=== PATIENT | male | born 1925 | race Caucasian/White ===

== ENCOUNTER 2017-07-03 10:53 | Observation (INO) ==
[2017-07-03] MEDS ORDERED: 0.9 % Sodium Chloride 500 ML IVC ONE ×2 (11:32→13:27)
--- NOTE | 2017-07-03 11:35 | Emergency Department Note ---
Disposition Clinical Impression: Urinary tract infection Qualifiers: Urinary tract infection type: site unspecified Hematuria presence: without hematuria Qualified Code(s): N39.0 - Urinary tract infection, site not specified Altered mental state Qualifiers: Altered mental status type: unspecified Qualified Code(s): R41.82 - Altered mental status, unspecified Disposition: Admitted As Inpatient Condition: Fair Time of Disposition: 13:21 General Adult HPI - General Chief complaint: ED Urogenital-Male Stated complaint: uti symptoms Time Seen by Provider: 07/03/17 11:08 Source: patient, family Mode of arrival: ambulatory Limitations: no limitations Nursing Notes Reviewed: Yes Vital Signs Reviewed: Yes - History of Present Illness HPI Narrative: 89-year-old male with a history of hypertension, diabetes, recent head injury status post evacuation of bleed from [place] in May presents for evaluation of UTI symptoms and altered mental status. Patient did have a Berg catheter which was recently removed. Patient's family reports he has been increasingly altered over the past couple days. The patient also been combative reported by home nursing staff. Nursing staff also reports the patient has had difficulty with ambulation. Patient also had some discomfort in that lower abdomen. Patient had a outpatient urinary specimen obtained yesterday which was consistent with infection. Patient denies any fevers. No chest pain or difficulty breathing. Abdominal pain as discussed in the lower abdomen. No recent antibiotic use. No notable traumas or falls. Pain Scale: 8 - Related Data Home Medications Medication Instructions Recorded Confirmed Digoxin [Lanoxin] 0.25 mg PO DAILY 12/12/15 07/03/17 Magnesium Oxide [Mgo] 400 mg PO DAILY 12/12/15 07/03/17 Metoprolol [Lopressor] 12.5 mg PO BID 12/12/15 07/03/17 Nitroglycerin [Nitrostat] 0.4 mg SL Q5M PRN 12/12/15 07/03/17 [place]-3 Fatty Acids/Fish Oil 2 each PO BID 12/12/15 07/03/17 [[place]-3 Fish Oil 1,000 mg Sfgl] Fluticasone Propionate [Flovent 2 puff IH BID 05/09/17 07/03/17 Hfa] Acetaminophen [Non-Aspirin] 650 mg PO DAILY PRN 07/03/17 07/03/17 Albuterol Sulfate [Proair Hfa] 2 puff IH Q4-6H PRN 07/03/17 07/03/17 Insulin ASPART [NovoLOG] 0 unit SQ AD 07/03/17 07/03/17 Insulin NPH [HumuLIN NPH] 4 unit SQ Q12H 07/03/17 07/03/17 Ipratropium/Albuterol Neb [Duoneb] 3 ml IH Q6HR 07/03/17 07/03/17 Oxygen 2 - 4 l .ROUTE AD 07/03/17 07/03/17 Allergies Allergy/AdvReac Type Severity Reaction Status Date / Time aspirin [ASA] AdvReac Itching Verified 07/03/17 10:59 Penicillins [PCN] AdvReac Itching Verified 07/03/17 10:59 All systems ED: reviewed and negative except as stated. Constitutional: Reports: as per HPI. Denies: fever Eyes: Reports: as per HPI ENT ED: Reports: as per HPI Cardiovascular: Reports: as per HPI. Denies: chest pain Respiratory: Reports: as per HPI. Denies: cough, dyspnea Gastrointestinal: Reports: as per HPI, abdominal pain. Denies: nausea, vomiting Genitourinary: Reports: as per HPI Musculoskeletal: Reports: as per HPI Integumentary: Reports: as per HPI Neurological: Reports: as per HPI. Denies: weakness Psychiatric: Reports: as per HPI Endocrine: Reports: as per HPI Hematological/Lymphatic: Reports: as per HPI Past Medical History - Past Medical History Source: patient, obtained from family Medical history: Reports: diabetes Psychiatric history: Reports: anxiety, depression - Social History Smoking Status: Never smoker Smokeless Tobacco Status: No Alcohol use: Reports: none Drug use: Reports: none Physical Exam - General Limitations: no limitations, altered mental status General appearance: alert, in no apparent distress - Head Head exam: normocephalic, normal inspection, other (Healed right craniotomy scar ) - Eye Eye exam: Present: normal appearance, PERRL, EOMI. Absent: nystagmus - ENT ENT exam: normal exam, normal oropharynx, mucous membranes dry - Neck Neck exam: Present: normal inspection - Chest Chest inspection: Present: normal inspection, symmetric chest wall rise - Respiratory Respiratory exam: Present: normal lung sounds bilaterally. Absent: respiratory distress - Cardiovascular Cardiovascular exam: Present: regular rate, normal rhythm. Absent: systolic murmur - Abdominal Exam Abdominal exam: Present: soft, tenderness (Mild lower abdominal), distention ( Lower abdominal fullness), hyperactive bowel sounds. Absent: guarding, rebound - Extremities Exam Extremities exam: Present: normal inspection - Back Exam Back exam: Present: normal inspection - Neurological Exam Neurological exam: Present: alert, CN II-XII intact - Expanded Neurological Exam Patient oriented to: Present: person, place Cranial nerves: EOM function (II, III, IV, ): Normal, facial sensation (V): Normal, facial palsy (VII): Normal, spinal accessory function (XI): Normal, tongue deviation (XII): Normal Motor strength - LUE: 5/5 Motor strength - RUE: 5/5 Motor strength - LLE: 5/5 Motor strength - RLE: 5/5 Coma Scale Eye Opening: Spontaneous Coma Scale Motor Response: Obeys Commands Coma Scale Verbal Response: Confused Coma Scale Total: 14 - Skin Skin exam: Present: warm, dry, intact Course Course Narrative: Patient seen and examined. Patient does appear altered with situation. Patient is appropriate to self as well as place. History provided by the family at and nursing staff at bedside. Denies any notable trauma. Patient's urinalysis yesterday does show signs of infection. Concerns for UTI and altered mental status. Patient will get basic lab work including IV fluids and antibiotics. Patient will also get a head CT given recent trauma concerns for rebleeding. Disposition admission - Reevaluation(s) Reevaluation #1: Patient seen and examined. Patient in no acute distress. Patient did have a bladder ultrasound showed approximately 100 mL of urine. Patient's abdominal plan of care. Time: 13:36 Vital Signs Temperature 97.9 F 07/03/17 10:56 Pulse Rate 60 07/03/17 10:56 Respiratory Rate 18 07/03/17 10:56 Blood Pressure 99/61 07/03/17 10:56 O2 Sat by Pulse Oximetry 99 07/03/17 10:56 Temperature 97.7 F 07/03/17 15:49 Pulse Rate 62 07/03/17 15:49 Respiratory Rate 13 07/03/17 15:49 Blood Pressure 148/75 07/03/17 15:49 O2 Sat by Pulse Oximetry 99 07/03/17 15:49 Oxygen Delivery Oxygen Delivery Room Air Medical Decision Making - [facility] Narrative Medical decision making narrative: 89-year-old male presents for evaluation of UTI as well as altered mental status. Patient's symptoms in the past couple days. Patient was recently hospitalized with Berg catheter placement. Patient did have urinalysis obtained yesterday which showed evidence of infection. Given the patient's altered mental status as well as UTI with most recent catheter insertion the patient was given IV antibiotics. Patient will also be admitted to the hospital service to help ensure resolution of symptoms. Given the patient's recent history of head injury status post bleed the patient did get a head CT which showed no acute intracranial abnormality. - Lab Data Lab results reviewed: Yes I reviewed the patient's lab results. Result diagrams: 07/03/17 12:21 07/03/17 12:21 Lab Results 07/03/17 07/03/17 07/03/17 Range/Units 12:21 12:21 12:21 WBC 8.0 (4.3-11.1) K/mcL RBC 4.82 (4.19-5.50) M/mcL Hgb 14.3 (12.9-16.9) g/dL Hct 46.8 (37.5-50.1) % MCV 97.1 (83.0-100.0) fL MCH 29.7 (28.0-33.3) pg MCHC 30.6 L (31.6-35.5) g/dL RDW 16.1 H (11.5-14.5) % Plt Count 148 (140-400) K/mcL MPV 12.3 (9.4-12.4) fL Immature Gran % 0.2 (0-4) % Seg Neutrophils % 72.1 % Lymphocytes % 16.8 % Monocytes % 7.8 % Eosinophils % 2.5 % Basophils % 0.6 % Neutrophils # 5.8 (1.6-8.9) K/mcL Lymphocytes # 1.4 (0.6-4.6) K/mcL Monocytes # 0.6 (0.0-1.3) K/mcL Eosinophils # 0.2 (0.0-0.6) K/mcL Basophils # 0.1 (0.0-0.2) K/mcL Sodium 138 (136-145) mEq/L Potassium 4.2 (3.5-5.1) mEq/L Chloride 101 (98-107) mEq/L Carbon Dioxide 34 H (23-29) mEq/L BUN 36 H (8-23) mg/dL Creatinine 0.91 (0.70-1.30) mg/dL Est GFR ( Amer) > 60 (> 60) Est GFR (Non-Af Amer) > 60 (> 60) BUN/Creatinine Ratio 40 H (6-26) Glucose 305 H (70-105) mg/dL Calculated Osmolality 306 H (280-300) Lactic Acid 1.7 (0.5-2.2) mmol/L Calcium 9.5 (8.6-10.3) mg/dL Total Bilirubin 0.5 (0.3-1.0) mg/dL AST 14 (13-39) Units/L ALT 15 (7-52) Units/L Alkaline Phosphatase 166 H (34-104) Units/L Serum Total Protein 6.1 L (6.4-8.9) g/dL Albumin 2.9 L (3.5-5.7) g/dL Globulin 3.2 (2.4-3.5) g/dL Albumin/Globulin Ratio 0.9 L (1.1-2.2) - Radiology Data Radiology results reviewed: Yes I reviewed the patient's radiology results. Head CT 07/03/17 11:31 IMPRESSION: No acute intracranial abnormality. The high attenuation in the right subdural space has resolved and low attenuation is seen in the right subdural space consistent with fluid. Diffuse atrophic changes with findings suggesting chronic microvascular ischemia D/ / Vijay Antonio MD / Vijay Antonio MD Interpreting Provider: Vijay Antonio MD - EKG Data EKG #1 EKG attestation: Yes I reviewed and interpreted this EKG. EKG results narrative: Electronic ventricular pacemaker at rate of 60. No signs of [place]. QTC of 403. Similar to prior EKG in May 2017 S.B.A.R. - S.B.A.R. Situation: Demographics Background: Presenting Complaint Assessment: Vital Signs, Course and respsone to treatment, Patient/Family Expectation Recommendation: Barrier(s) to disposition, Recommendation based on pending studies, treatments, or consults S.B.A.R. Report Given to: Dr. Nehemiah Reyes Repor Time: 13:28 Attestation Statement - Attestation Attestation: I examined this patient and my medical decision-making was reviewed with the Resident Physician. I agree with the documented findings, disposition and treatment plan as described except to the extent set forth below. Family relates change from baseline mental status, although this is currently subtle - converses normally and answers questions appropriately on my eval. Hemodynamically normal, source of infection identified, urine cultured.
[2017-07-03] MEDS ORDERED: cefTRIAXone 1,000 MG in Water for inj. (sterile) 20 ML 10 ML IVP ONE (11:45)
[2017-07-03 12:32] LABS: Basophils # 0.1 K/mcL (0.0-0.2); Basophils % 0.6 %; Eosinophils # 0.2 K/mcL (0.0-0.6); Eosinophils % 2.5 %; Hematocrit 46.8 % (37.5-50.1); Hemoglobin 14.3 g/dL (12.9-16.9); Immature Granulocytes % 0.2 % (0-4); Lymphocytes # 1.4 K/mcL (0.6-4.6); Lymphocytes % 16.8 %; Mean Corpuscular HGB Conc 30.6 g/dL (31.6-35.5); Mean Corpuscular Hemoglobin 29.7 pg (28.0-33.3); Mean Corpuscular Volume 97.1 fL (83.0-100.0); Mean Platelet Volume 12.3 fL (9.4-12.4); Monocytes # 0.6 K/mcL (0.0-1.3); Monocytes % 7.8 %; Neutrophils # 5.8 K/mcL (1.6-8.9); Platelet Count 148 K/mcL (140-400); Red Blood Count 4.82 M/mcL (4.19-5.50); Red Cell Distribution Width 16.1 % (11.5-14.5); Segmented Neutrophils % 72.1 %
[2017-07-03 13:01] LABS: Alanine Aminotransferase 15 Units/L (7-52); Albumin 2.9 g/dL (3.5-5.7); Albumin/Globulin Ratio 0.9 (1.1-2.2); Alkaline Phosphatase 166 Units/L (34-104); Aspartate Amino Transferase 14 Units/L (13-39); BUN/Creatinine Ratio 40 (6-26); Bilirubin,Total 0.5 mg/dL (0.3-1.0); Blood Urea Nitrogen 36 mg/dL (8-23); Calcium 9.5 mg/dL (8.6-10.3); Carbon Dioxide 34 mEq/L (23-29); Chloride 101 mEq/L (98-107); Globulin 3.2 g/dL (2.4-3.5); Glucose 305 mg/dL (70-105); Osmolality,Calculated 306 (280-300); Potassium 4.2 mEq/L (3.5-5.1); Sodium 138 mEq/L (136-145); Total Protein 6.1 g/dL (6.4-8.9); eGFR For African Americans > 60 (> 60); eGFR For Non-African Americans > 60 (> 60)
--- NOTE | 2017-07-03 14:42 | Electrocardiograph Report ---
[place] [id number] Test Date: 2017-07-03 Pat Name: Leland Shepard Department: 104 Room: 2A11 Gender: M [employer]: : 1925 Requested By: Fernando Talley Order Number: [id number] Reading MD: Ty Cortez DO Measurements Intervals [place] Rate: 60 P: NV: 0 QRS: -52 QRSD: 151 T: 33 QT: 403 QTc: 403 Interpretive Statements ELECTRONIC VEN[employer]ICULAR PACEMAKER Electronically Signed On 07-03-2017 14:41:10 EST by Ty Cortez DO
--- NOTE | 2017-07-03 15:45 | Internal Med History&Physical ---
Date of Encounter: 07/03/17 Time of Encounter: 14:00 Assessment and Plan (1) Urinary tract infection Current visit: Yes Status: Acute -Patient will pyuria on urinalysis; cultures pending -Will continue ceftriaxone started in the ER Qualifiers: Urinary tract infection type: site unspecified Hematuria presence: without hematuria Qualified Code(s): N39.0 - Urinary tract infection, site not specified (2) Altered mental state Current visit: Yes Status: Acute -Suspect secondary to the above. -Patient does have underlying dementia per family. -Will continue to monitor -Physical therapy consulted for home safety Qualifiers: Altered mental status type: unspecified Qualified Code(s): R41.82 - Altered mental status, unspecified (3) HTN (hypertension) Current visit: Yes Status: Acute -Continue home medications Qualifiers: Hypertension type: essential hypertension Qualified Code(s): I10 - Essential (primary) hypertension (4) Diabetes Current visit: Yes Status: Acute -Continue home medications Qualifiers: Diabetes mellitus type: type 2 Qualified Code(s): E11.9 - Type 2 diabetes mellitus without complications (5) DVT prophylaxis Current visit: Yes Status: Acute -SCDs Internal Medicine - H&P: HPI Chief complaint: Altered mental status Admitted From: Home Plans for Post Hospital Care: Home History of present illness: Patient is an 89-year-old male with past medical history significant for recent subdural hematoma with evacuation on 05/2017 in addition to dementia, hypertension and diabetes who presents to the ER on 07/03/17 due to altered mental status. Per home health nurse and family who are at bedside, patient has been more confused over the last 24 hours than usual and also combative. Home health nurse noticed that urine had a strong odor and decided to do a UA. Patient was brought to the ER for further evaluation. In the ER, patient was found to have pyuria and also dehydrated on labs. CT of the head showed no acute findings. Patient will be admitted to the medical surgical floor for management acute cystitis. Past Med Surg Social Fam HX - Past Medical History Medical history: diabetes Psychiatric history: anxiety, depression - Social History Smoking Status: Never smoker Smokeless Tobacco Status: No Alcohol use: none Drug use: none Internal Medicine - H&P: Meds Digoxin [Lanoxin] 0.25 mg PO DAILY 12/12/15 [History] Magnesium Oxide [Mgo] 400 mg PO DAILY 12/12/15 [History] Metoprolol [Lopressor] 12.5 mg PO BID 12/12/15 [History] Nitroglycerin [Nitrostat] 0.4 mg SL Q5M PRN 12/12/15 [History] [place]-3 Fatty Acids/Fish Oil [[place]-3 Fish Oil 1,000 mg Sfgl] 2 each PO BID 04/18 [History] Fluticasone Propionate [Flovent Hfa] 2 puff IH BID 05/09/17 [History] Acetaminophen [Non-Aspirin] 650 mg PO DAILY PRN 07/03/17 [History] Albuterol Sulfate [Proair Hfa] 2 puff IH Q4-6H PRN 07/03/17 [History] Insulin ASPART [NovoLOG] 0 unit SQ AD 07/03/17 [History] Insulin NPH [HumuLIN NPH] 4 unit SQ Q12H 07/03/17 [History] Ipratropium/Albuterol Neb [Duoneb] 3 ml IH Q6HR 07/03/17 [History] Oxygen 2 - 4 l .ROUTE AD 07/03/17 [History] 3 Allergy/AdvReac Type Severity Reaction Status Date / Time aspirin [ASA] AdvReac Itching Verified 07/03/17 10:59 Penicillins [PCN] AdvReac Itching Verified 07/03/17 10:59 All Systems PM: A 10-system review of systems was performed and is negative for pertinent findings except as documented above in the HPI. - Constitutional Vitals: Temp Pulse Resp BP Pulse Ox 97.9 F 62 18 119/65 99 07/03/17 10:56 07/03/17 13:49 07/03/17 13:49 07/03/17 13:49 07/03/17 13:49 General appearance: Present: A&O X 1 - Respiratory Respiratory exam: Present: CTAB. Absent: accessory muscle use, rales, rhonchi, wheezes - Cardiovascular Cardiovascular exam: Present: RRR, +S1, +S2. Absent: diastolic murmur, gallop, rubs, systolic murmur - GI/Abdominal GI/Abdominal exam: Present: normal bowel sounds, soft, no peritoneal signs. Absent: distended, tenderness - Extremities Exam Extremities exam: Absent: pedal edema - Neurological Exam Neurological exam: Present: altered - Psychiatric Psychiatric exam: Present: normal mood Internal Med - H&P Results - Labs CBC & Chem 7: 07/03/17 12:21 07/03/17 12:21
[2017-07-03] MEDS ORDERED: Naloxone 0.4 MG/ML INJ IVP PRN (15:55)
[2017-07-03] MEDS ORDERED: Nitroglycerin 0.4 MG TAB.SUBL SL PRN (15:58)
[2017-07-03] MEDS ORDERED: Acetaminophen 325 MG TABLET PO PRN (15:58)
[2017-07-03] MEDS ORDERED: NON-FORMULARY MEDICATION 1 EACH EACH (Oxygen [Oxygen] 0 L) SCH (16:00)
[2017-07-03] MEDS ORDERED: INSULIN ISOPHANE SQ SCH (16:00)
[2017-07-03] MEDS ORDERED: Dextrose Gel 15 GM/37.5 ML TUBE PO PRN ×2 (17:00)
[2017-07-03] MEDS ORDERED: D5% in Water 1,000 ML IVC PRN ×2 (17:00→20:48)
[2017-07-03] MEDS ORDERED: *HR* Dextrose 50 % in Water (Syg) 50 ML SYRINGE IVP PRN (17:00)
[2017-07-03 17:41] LABS: Bilirubin,Urine Negative (Negative); Blood,Urine Large (Negative); Clarity,Urine Turbid (Clear); Color,Urine Yellow (Yellow); Glucose,Urine (UA) Normal (Normal); Ketones,Urine Negative (Negative); Leukocyte Esterase,Urine Large (Negative); Nitrite,Urine Positive (Negative); PH,Urine 7.5 pH Units (5.0-8.0); Protein,Urine 100 mg/dL (Neg-Trace); Specific Gravity,Urine 1.023 (1.010-1.025); Urobilinogen,Urine Normal (Normal)
[2017-07-03 17:43] LABS: RBC,Urine TNTC per hpf (0-3); Squamous Epithelial Cell,Urine Many per lpf (None-Few); WBC,Urine TNTC per hpf (0-3)
[2017-07-03 17:59] LABS: Bacteria,Urine Moderate per hpf (None-Few); Mucus,Urine Few (Few)
[2017-07-03 18:00] LABS: Hyaline Casts,Urine None Seen per lpf (None-Few)
[2017-07-03] MEDS: Ipratropium/Albuterol Neb 3 ML IH SCH ×2 (18:21→21:13)
[2017-07-03] MEDS ORDERED: Insulin LISPRO 300 UNITS/3 ML VIAL SQ ONE (20:51)
[2017-07-03] MEDS ORDERED: FATTY ACIDS PO SCH (21:00)
[2017-07-03] MEDS ORDERED: OMEGA PO SCH (21:00)
[2017-07-03] MEDS ORDERED: FISH OIL PO SCH (21:00)
[2017-07-03] MEDS: Insulin NPH 100 UNIT/ML (x5UNIT) SQ SCH (21:03)
[2017-07-03] MEDS: Beclomethasone 80mcg MDI IH SCH (21:13)
[2017-07-03] MEDS ORDERED: D5% in Water 1,000 ML IVC SCH (21:30)
[2017-07-04 01:07] LABS: Basophils % 0.5 %; Eosinophils # 0.2 K/mcL (0.0-0.6); Eosinophils % 2.6 %; Hematocrit 43.7 % (37.5-50.1); Hemoglobin 13.7 g/dL (12.9-16.9); Immature Granulocytes % 0.4 % (0-4); Lymphocytes % 23.3 %; Mean Corpuscular HGB Conc 31.4 g/dL (31.6-35.5); Mean Corpuscular Hemoglobin 29.8 pg (28.0-33.3); Mean Corpuscular Volume 95.2 fL (83.0-100.0); Mean Platelet Volume 12.5 fL (9.4-12.4); Monocytes # 0.7 K/mcL (0.0-1.3); Monocytes % 8.6 %; Neutrophils # 5.5 K/mcL (1.6-8.9); Platelet Count 129 K/mcL (140-400); Red Blood Count 4.59 M/mcL (4.19-5.50); Red Cell Distribution Width 16.3 % (11.5-14.5); Segmented Neutrophils % 64.6 %
[2017-07-04 01:26] LABS: Alanine Aminotransferase 11 Units/L (7-52); Albumin 2.5 g/dL (3.5-5.7); Albumin/Globulin Ratio 0.8 (1.1-2.2); Alkaline Phosphatase 136 Units/L (34-104); Aspartate Amino Transferase 18 Units/L (13-39); BUN/Creatinine Ratio 46 (6-26); Bilirubin,Total 0.5 mg/dL (0.3-1.0); Blood Urea Nitrogen 32 mg/dL (8-23); Calcium 8.9 mg/dL (8.6-10.3); Carbon Dioxide 24 mEq/L (23-29); Chloride 108 mEq/L (98-107); Globulin 3.2 g/dL (2.4-3.5); Glucose 185 mg/dL (70-105); Magnesium 1.6 mg/dL (1.6-2.6); Osmolality,Calculated 302 (280-300); Potassium 4.3 mEq/L (3.5-5.1); Sodium 140 mEq/L (136-145); Total Protein 5.7 g/dL (6.4-8.9); eGFR For African Americans > 60 (> 60); eGFR For Non-African Americans > 60 (> 60)
[2017-07-04] MEDS: Ipratropium/Albuterol Neb 3 ML IH SCH ×4 (03:44→22:16)
--- NOTE | 2017-07-04 07:27 | Urology History & Physical ---
Date of Encounter: 07/04/17 Time of Encounter: 07:20 Assessment and Plan (1) Peña catheter problem Current Visit: Yes Status: Acute urine sent for culture. pending. bacteria and sediment are common with chronic indwelling cath. Unable to determine at this time if the cath is needed (ie is it in place for retention or incontinence). Keep in place for now. verify it is changed every 4 weeks. if the sediment continues to be a problem will start distilled vinegar instillations. because the urine is clearing today with ABX I do not recommend any other intervention at this time. also need to consider pts age and comorbidities - aggressive imaging and treatment may not be indicated. consider outpatient evaluation by urology if family desires Qualifiers: Encounter type: initial encounter Qualified Code(s): T83.9XXA - Unspecified complication of genitourinary prosthetic device, implant and graft, initial encounter (2) Urinary tract infection Current Visit: Yes Status: Acute follow cultures. Qualifiers: Urinary tract infection type: site unspecified Hematuria presence: without hematuria Qualified Code(s): N39.0 - Urinary tract infection, site not specified History of Present Illness Chief complaint: cloudy urine HPI: Mr. Shepard is a 89 year old male admitted to hospital for changes in mental status. review of [facility] and and [facility] shows that the patient has not been seen by [facility]. Pt with hx of dementia and head injury. indwelling cath. unsure if for retention or incontinence. No imaging. Past Med Surg Social Fam HX - Past Medical History Medical history: CHF, COPD, diabetes, renal disease Psychiatric history: anxiety, depression - Social History Smoking Status: Never smoker Smokeless Tobacco Status: No Alcohol use: none Drug use: none - Family History Father Hx Family Cardiac Disorders: Yes Mother Hx Family Cancer: Yes Medications and Allergies Digoxin [Lanoxin] 0.25 mg PO DAILY 12/12/15 [History] Magnesium Oxide [Mgo] 400 mg PO DAILY 12/12/15 [History] Metoprolol [Lopressor] 12.5 mg PO BID 12/12/15 [History] Nitroglycerin [Nitrostat] 0.4 mg SL Q5M PRN 12/12/15 [History] [place]-3 Fatty Acids/Fish Oil [[place] Pk-3 Fish Oil 1,000 mg Sfgl] 2 each PO BID 04/18 [History] Fluticasone Propionate [Flovent Hfa] 2 puff IH BID 05/09/17 [History] Acetaminophen [Non-Aspirin] 650 mg PO DAILY PRN 07/03/17 [History] Albuterol Sulfate [Proair Hfa] 2 puff IH Q4-6H PRN 07/03/17 [History] Insulin ASPART [NovoLOG] 0 unit SQ AD 07/03/17 [History] Insulin NPH [HumuLIN NPH] 4 unit SQ Q12H 07/03/17 [History] Ipratropium/Albuterol Neb [Duoneb] 3 ml IH Q6HR 07/03/17 [History] Oxygen 2 - 4 l .ROUTE AD 07/03/17 [History] 3 Allergy/AdvReac Type Severity Reaction Status Date / Time aspirin [ASA] AdvReac Itching Verified 07/03/17 10:59 Penicillins [PCN] AdvReac Itching Verified 07/03/17 10:59 Review of Systems ROS unobtainable: due to mental status - Constitutional chills Exam Initial Vital Signs Temp Pulse Resp BP Pulse Ox 97.9 F 60 18 99/61 99 07/03/17 10:56 07/03/17 10:56 07/03/17 10:56 07/03/17 10:56 07/03/17 10:56 - General physical appearance Present: no distress, chronically ill - Eyes Present: conjunctiva is clear - ENT Present: normal nares - Neck Present: no masses, no lymphadenopathy - Respiratory Present: normal respiratory effort - Cardiovascular Cardiovascular exam IM: RRR - Abdomen Abdomen: Present: soft. Absent: masses, suprapubic tenderness - Genitourinary normal penis with no external lesions - Integumentary Present: no rash, no growths - Neurologic Present: confused - Additional Findings pñea cath with clear urine. small sediment. Urology Results - Labs 07/04/17 01:00 07/04/17 00:30 Abnormal lab results MCHC 31.4 g/dL (31.6-35.5) L 07/04/17 01:00 RDW 16.3 % (11.5-14.5) H 07/04/17 01:00 Plt Count 129 K/mcL (140-400) L 07/04/17 01:00 MPV 12.5 fL (9.4-12.4) H 07/04/17 01:00 Chloride 108 mEq/L (98-107) H 07/04/17 00:30 BUN 32 mg/dL (8-23) H 07/04/17 00:30 BUN/Creatinine Ratio 46 (6-26) H 07/04/17 00:30 Glucose 185 mg/dL (70-105) H 07/04/17 00:30 POC Glucose 171 (58-89) H 07/03/17 23:39 Calculated Osmolality 302 (280-300) H 07/04/17 00:30 Alkaline Phosphatase 136 Units/L (34-104) H 07/04/17 00:30 Troponin I 0.04 ng/mL (< 0.04) H* 07/04/17 00:30 Serum Total Protein 5.7 g/dL (6.4-8.9) L 07/04/17 00:30 Albumin 2.5 g/dL (3.5-5.7) L 07/04/17 00:30 Albumin/Globulin Ratio 0.8 (1.1-2.2) L 07/04/17 00:30 Urine Clarity Turbid (Clear) A 07/03/17 17:36 Urine Protein 100 mg/dL (Neg-Trace) H 07/03/17 17:36 Urine Blood Large (Negative) H 07/03/17 17:36 Urine Nitrite Positive (Negative) A 07/03/17 17:36 Ur Leukocyte Esterase Large (Negative) H 07/03/17 17:36 Urine Microscopic RBC TNTC per hpf (0-3) H 07/03/17 17:36 Urine Microscopic WBC TNTC per hpf (0-3) H 07/03/17 17:36 Ur Squamous Epith Cells Many per lpf (None-Few) H 07/03/17 17:36 Urine Bacteria Moderate per hpf (None-Few) H 07/03/17 17:36 Diabetes panel 07/04/17 Range/Units 00:30 Sodium 140 (136-145) mEq/L Potassium 4.3 (3.5-5.1) mEq/L Chloride 108 H (98-107) mEq/L Carbon Dioxide 24 (23-29) mEq/L BUN 32 H (8-23) mg/dL Creatinine 0.70 (0.70-1.30) mg/dL Glucose 185 H (70-105) mg/dL Calcium 8.9 (8.6-10.3) mg/dL AST 18 (13-39) Units/L ALT 11 (7-52) Units/L Alkaline Phosphatase 136 H (34-104) Units/L Albumin 2.5 L (3.5-5.7) g/dL Calcium panel 07/04/17 Range/Units 00:30 Calcium 8.9 (8.6-10.3) mg/dL Albumin 2.5 L (3.5-5.7) g/dL Pituitary panel 07/04/17 Range/Units 00:30 Sodium 140 (136-145) mEq/L Potassium 4.3 (3.5-5.1) mEq/L Chloride 108 H (98-107) mEq/L Carbon Dioxide 24 (23-29) mEq/L BUN 32 H (8-23) mg/dL Creatinine 0.70 (0.70-1.30) mg/dL Glucose 185 H (70-105) mg/dL Calcium 8.9 (8.6-10.3) mg/dL Adrenal panel 07/04/17 Range/Units 00:30 Sodium 140 (136-145) mEq/L Potassium 4.3 (3.5-5.1) mEq/L Chloride 108 H (98-107) mEq/L Carbon Dioxide 24 (23-29) mEq/L BUN 32 H (8-23) mg/dL Creatinine 0.70 (0.70-1.30) mg/dL Glucose 185 H (70-105) mg/dL Calcium 8.9 (8.6-10.3) mg/dL Total Bilirubin 0.5 (0.3-1.0) mg/dL AST 18 (13-39) Units/L ALT 11 (7-52) Units/L Alkaline Phosphatase 136 H (34-104) Units/L Albumin 2.5 L (3.5-5.7) g/dL All other labs normal. - VTE Documentation of Mechanical Device: Intermittent pneumatic compression device
[2017-07-04] MEDS ORDERED: Acetaminophen 325 MG TABLET PO PRN (08:00)
--- NOTE | 2017-07-04 09:19 | Internal Med Progress Note ---
Date of Encounter: 07/04/17 Time of Encounter: 09:17 - Assessment and plan (1) Infectious encephalopathy Current Visit: Yes Status: Acute Assessment and plan: Likely secondary to the urinary tract infection. Unsure what the patient's baseline is. CT head with no acute findings. We will continue to treat underlying cause. (2) Urinary tract infection Current Visit: Yes Status: Acute Assessment and plan: Continue ceftriaxone. Follow up cultures. Qualifiers: Urinary tract infection type: site unspecified Hematuria presence: without hematuria Qualified Code(s): N39.0 - Urinary tract infection, site not specified (3) Diabetes Current Visit: Yes Status: Acute Assessment and plan: Continue insulin sliding scale. Continue with Accu-Cheks. Qualifiers: Diabetes mellitus type: type 2 Diabetes mellitus complication status: without complication Diabetes mellitus superintendent terminal insulin use: without superintendent terminal use Qualified Code(s): E11.9 - Type 2 diabetes mellitus without complications (4) HTN (hypertension) Current Visit: Yes Status: Acute Assessment and plan: Continue home medications. Blood pressure stable Qualifiers: Hypertension type: essential hypertension Qualified Code(s): I10 - Essential (primary) hypertension (5) DVT prophylaxis Current Visit: Yes Status: Acute Assessment and plan: Upper subcutaneous - Subjective Interval history: Patient was seen and examined. No acute events. He was admitted yesterday with a urinary tract infection. He had altered mental status. Not sure exactly what his baseline is. He is only alert to himself this morning. He has been afebrile. - Constitutional Vitals: Temp Pulse Resp BP Pulse Ox 98.4 F 60 18 122/70 96 07/04/17 03:55 07/04/17 03:55 07/04/17 03:55 07/04/17 00:37 07/04/17 03:55 General appearance: Present: A&O X 1 Exam: GEN: NAD. Alert and oriented 1. He only knows his name CVS: RRR. S1, S2, No m/r/g RESP: CTAB ABD: Soft, NT, ND, +BS EXT: No edema. 2+ DP. No rashes NEURO: Nonfocal Internal Medicine: Result - Labs CBC & Chem 7: 07/04/17 01:00 07/04/17 00:30 Labs: Short CBC 07/04/17 Range/Units 01:00 WBC 8.4 (4.3-11.1) K/mcL Hgb 13.7 (12.9-16.9) g/dL Hct 43.7 (37.5-50.1) % Plt Count 129 L (140-400) K/mcL Neutrophils # 5.5 (1.6-8.9) K/mcL BMP 07/04/17 00:30 Sodium 140 Potassium 4.3 Chloride 108 H Carbon Dioxide 24 BUN 32 H Creatinine 0.70 Glucose 185 H Calcium 8.9 Cardiac Enzymes 07/04/17 07/04/17 Range/Units 00:30 06:56 Troponin I 0.04 H* 0.04 H* (< 0.04) ng/mL Liver Function 07/04/17 Range/Units 00:30 Total Bilirubin 0.5 (0.3-1.0) mg/dL AST 18 (13-39) Units/L ALT 11 (7-52) Units/L Alkaline Phosphatase 136 H (34-104) Units/L Albumin 2.5 L (3.5-5.7) g/dL Urine 07/03/17 Range/Units 17:36 Urine Color Yellow (Yellow) Urine Clarity Turbid A (Clear) Urine pH 7.5 (5.0-8.0) pH Units Ur Specific Drew 1.023 (1.010-1.025) Urine Protein 100 H (Neg-Trace) mg/dL Urine Glucose (UA) Normal (Normal) mg/dL - VTE Documentation of Mechanical Device: Intermittent pneumatic compression device Consult Discharge Plan - Plan Referrals: Alex Mckeon DO [Primary Care Provider] -
[2017-07-04] MEDS: Insulin NPH 100 UNIT/ML (x5UNIT) SQ SCH ×2 (10:26→21:17)
[2017-07-04] MEDS: Magnesium Oxide 400 MG TABLET PO SCH (10:26)
[2017-07-04] MEDS: cefTRIAXone 1,000 MG in Water for inj. (sterile) 10 ML IVP SCH (10:27)
[2017-07-04] MEDS: *HR* Digoxin 0.25 MG TABLET PO SCH (10:27)
[2017-07-04] MEDS: Beclomethasone 80mcg MDI IH SCH ×2 (11:00→22:16)
[2017-07-04] MEDS ORDERED: Insulin LISPRO 300 UNITS/3 ML VIAL SQ SCH ×2 (11:30→21:00)
[2017-07-04] MEDS: *HR* Heparin 5,000 UNIT/ML VIAL SQ SCH ×2 (11:33→16:56)
[2017-07-04] MEDS: Insulin LISPRO 300 UNITS/3 ML VIAL SQ SCH ×2 (16:56→21:17)
[2017-07-05] MEDS: Ipratropium/Albuterol Neb 3 ML IH SCH ×2 (03:48→10:40)
[2017-07-05] MEDS: *HR* Heparin 5,000 UNIT/ML VIAL SQ SCH (06:07)
[2017-07-05 06:43] LABS: Basophils % 0.5 %; Eosinophils # 0.3 K/mcL (0.0-0.6); Hematocrit 40.7 % (37.5-50.1); Hemoglobin 12.7 g/dL (12.9-16.9); Immature Granulocytes % 0.4 % (0-4); Lymphocytes # 1.8 K/mcL (0.6-4.6); Lymphocytes % 24.3 %; Mean Corpuscular HGB Conc 31.2 g/dL (31.6-35.5); Mean Corpuscular Hemoglobin 29.8 pg (28.0-33.3); Mean Corpuscular Volume 95.5 fL (83.0-100.0); Mean Platelet Volume 12.5 fL (9.4-12.4); Monocytes # 0.6 K/mcL (0.0-1.3); Monocytes % 7.8 %; Neutrophils # 4.6 K/mcL (1.6-8.9); Platelet Count 140 K/mcL (140-400); Red Blood Count 4.26 M/mcL (4.19-5.50); Red Cell Distribution Width 16.1 % (11.5-14.5)
[2017-07-05 07:11] LABS: BUN/Creatinine Ratio 33 (6-26); Blood Urea Nitrogen 25 mg/dL (8-23); Calcium 8.9 mg/dL (8.6-10.3); Carbon Dioxide 29 mEq/L (23-29); Chloride 104 mEq/L (98-107); Glucose 189 mg/dL (70-105); Osmolality,Calculated 299 (280-300); Potassium 3.8 mEq/L (3.5-5.1); Sodium 140 mEq/L (136-145); eGFR For African Americans > 60 (> 60); eGFR For Non-African Americans > 60 (> 60)
[2017-07-05] MEDS: Insulin LISPRO 300 UNITS/3 ML VIAL SQ SCH ×2 (08:24→12:03)
--- NOTE | 2017-07-05 09:17 | Discharge Summary ---
Date of Encounter: 07/05/17 Time of Encounter: 09:13 - Discharge Diagnosis (1) Infectious encephalopathy Priority: Primary Status: Acute (2) Urinary tract infection Priority: Primary Status: Acute Qualifiers: Urinary tract infection type: site unspecified Hematuria presence: without hematuria Qualified Code(s): N39.0 - Urinary tract infection, site not specified (3) Diabetes Priority: Secondary Status: Acute Qualifiers: Diabetes mellitus type: type 2 Diabetes mellitus complication status: without complication Diabetes mellitus fdc insulin use: without account support analyst use Qualified Code(s): E11.9 - Type 2 diabetes mellitus without complications (4) HTN (hypertension) Priority: Secondary Status: Acute Qualifiers: Hypertension type: essential hypertension Qualified Code(s): I10 - Essential (primary) hypertension - Discharge Medications Prescriptions: levoFLOXacin [Levaquin] 500 mg PO DAILY #5 tablet Home Medications: Digoxin [Lanoxin] 0.25 mg PO DAILY 12/12/15 [History] Magnesium Oxide [Mgo] 400 mg PO DAILY 12/12/15 [History] Metoprolol [Lopressor] 25 mg PO DAILY 12/12/15 [History] Nitroglycerin [Nitrostat] 0.4 mg SL Q5M PRN 12/12/15 [History] [place]-3 Fatty Acids/Fish Oil [[place]-3 Fish Oil 1,000 mg Sfgl] 2 each PO BID 04/18 [History] Fluticasone Propionate [Flovent Hfa] 2 puff IH BID 05/09/17 [History] Acetaminophen [Non-Aspirin] 650 mg PO DAILY PRN 07/03/17 [History] Albuterol Sulfate [Proair Hfa] 2 puff IH Q4-6H PRN 07/03/17 [History] Insulin ASPART [NovoLOG] 0 unit SQ AD 07/03/17 [History] Insulin NPH [HumuLIN NPH] 4 unit SQ Q12H 07/03/17 [History] Ipratropium/Albuterol Neb [Duoneb] 3 ml IH Q6HR 07/03/17 [History] Oxygen 2 - 4 l .ROUTE AD 07/03/17 [History] Atorvastatin Calcium [Lipitor] 80 mg PO HS 07/04/17 [History] Calcium Carb, Citrate/Vit D3 [Calcium + D3 ER Tablet] 1 tab PO BID 07/04/17 [ History] levoFLOXacin [Levaquin] 500 mg PO DAILY #5 tablet 07/05/17 [Rx] Allergies/Adverse Reactions: 3 Allergy/AdvReac Type Severity Reaction Status Date / Time aspirin [ASA] AdvReac Itching Verified 07/03/17 10:59 Penicillins [PCN] AdvReac Itching Verified 07/03/17 10:59 Procedures/tests Complete & Pending: Procedures Performed prior 72 hours Category Date Time Status EKG [ECG 12 lead ECG] [ECG] Stat Y 07/04/17 00:07 Completed Date of admission: 07/03/17 14:36 Primary care physician: Alex Mckeon DO Consults: 07/03/17 15:56 Consult to Physical Therapy [CONS] Routine Comment: Evaluate, develop and implement POC Reason for Consult: home safety 07/03/17 16:26 Consult to Nutrition [CONS] Routine Comment: Consulting Provider: NUTRITION Reason for Dietary Consult: MST Score Tube Feed Start & Manage 07/03/17 16:31 Consult to Camera Technician [CONS] Routine Reason for SW Consult: home oxygen nery prn Proffessional Case Management home health care services possible rehab 07/03/17 17:08 Consult to Speech Therapy [CONS] Routine Comment: Evaluate, develop and implement POC Reason for Consult: peg tub, patient still able to swallow, need swallow evaluation. Call Completed: No 07/03/17 17:37 Consult to Urology [CONS] Routine Consulting Provider: Urologtomasa Gaitan Reason for Consult: superpubic tenderness, white milky drainage coming from catheter with minimal drainage. Call Completed: Yes 07/04/17 07:56 Consult to Invasive Line Access Team [CONS] Routine Reason for Consult: powerglide placement Line Type: EPIV 07/04/17 09:12 Consult to Occupational Therapy [CONS] Routine Comment: Evaluate, develop and implement POC Reason for Consult: therapy/placement needs Consult to Physical Therapy [CONS] Routine Comment: Evaluate, develop and implement POC Reason for Consult: PT eval - Patient Status Disposition: Home, Self-Care Condition: Fair Overall status at discharge: patient is progressing back to baseline - Discharge Instructions Instructions: Levofloxacin (By mouth), Urinary Tract Infection in Men (DC) Follow Up With: Alex Mckeon DO [Primary Care Provider] - 07/11/17 11:30 am Additional Instructions: Patient will take medications as ordered. Patient will follow up with PCP. Patient will come back to ER if s/s persist. - Diet and Activity Activity: increase activity as tolerated Diet: other (tube feeds) Hospital course: Mr. Shepard is a 89 year old male with past medical history significant for recent subdural hematoma with evacuation on 05/2017 in addition to dementia, hypertension and diabetes who presented to the ER on 07/03/17 due to altered mental status. Per home health nurse and family, patient has been more confused over the last 24 hours than usual and also combative. Home health nurse noticed that urine had a strong odor and decided to do a UA. Patient was brought to the ER for further evaluation. In the ER, patient was found to have pyuria and positive nitrites. He was started on IV abx and did well and was back to baseline by day 3. His cultures remained negative and I ended up discharging him on oral levaquin to finish treatment. He was stable for discharge on 07/05/2107. - Time Spent with Patient Total time spent providing and/or coordinating discharge services: Greater than 30 minutes - Constitutional Vitals: Temp Pulse Resp BP Pulse Ox 98.6 F 63 15 143/65 97 07/05/17 07:02 07/05/17 07:02 07/05/17 07:02 07/05/17 07:02 07/05/17 07:02 General appearance: Present: A&O X 1 Exam: GEN: NAD. Alert and oriented 1. He only knows his name CVS: RRR. S1, S2, No m/r/g RESP: CTAB ABD: Soft, NT, ND, +BS EXT: No edema. 2+ DP. No rashes NEURO: Nonfocal - VTE Documentation of Mechanical Device: Intermittent pneumatic compression device
[2017-07-05 10:34] VITALS: BP 116/56
[2017-07-05] MEDS: Beclomethasone 80mcg MDI IH SCH (10:39)
[2017-07-05] MEDS: *HR* Digoxin 0.25 MG TABLET PO SCH (10:43)
[2017-07-05] MEDS: Magnesium Oxide 400 MG TABLET PO SCH (10:44)
[2017-07-05] MEDS: Insulin NPH 100 UNIT/ML (x5UNIT) SQ SCH (10:44)
[2017-07-05] MEDS: cefTRIAXone 1,000 MG in Water for inj. (sterile) 10 ML IVP SCH (10:45)
--- NOTE | 2017-07-05 11:09 | Physician Discharge Referral ---
Home Health/Hosp Referral Info Transfer to: Home Health - Diagnosis (1) Infectious encephalopathy Priority: Primary Status: Acute (2) Urinary tract infection Priority: Primary Status: Acute (3) Diabetes Priority: Secondary Status: Acute (4) HTN (hypertension) Priority: Secondary Status: Acute - Respiratory Orders Smoking Cessation: Smoking cessation has been advised. For more information, call the [place] Tobacco Quit Line at 2-685-BQGX-NOW. - Diet/Nutrition Diet/Nutrition: List: Bolus 1 can of [employer] 1.5 x5 @ 0600, 1000, 1400, 1800, 2200 - Services Needed Following services are medically necessary services: Nursing, Physical Therapy, Occupational Therapy - Transfer Medications Prescriptions: levoFLOXacin [Levaquin] 500 mg PO DAILY #5 tablet Home Medications: Digoxin [Lanoxin] 0.25 mg PO DAILY 12/12/15 [History] Magnesium Oxide [Mgo] 400 mg PO DAILY 12/12/15 [History] Metoprolol [Lopressor] 25 mg PO DAILY 12/12/15 [History] Nitroglycerin [Nitrostat] 0.4 mg SL Q5M PRN 12/12/15 [History] [place]-3 Fatty Acids/Fish Oil [[place]-3 Fish Oil 1,000 mg Sfgl] 2 each PO BID 04/18 [History] Fluticasone Propionate [Flovent Hfa] 2 puff IH BID 05/09/17 [History] Acetaminophen [Non-Aspirin] 650 mg PO DAILY PRN 07/03/17 [History] Albuterol Sulfate [Proair Hfa] 2 puff IH Q4-6H PRN 07/03/17 [History] Insulin ASPART [NovoLOG] 0 unit SQ AD 07/03/17 [History] Insulin NPH [HumuLIN NPH] 4 unit SQ Q12H 07/03/17 [History] Ipratropium/Albuterol Neb [Duoneb] 3 ml IH Q6HR 07/03/17 [History] Oxygen 2 - 4 l .ROUTE AD 07/03/17 [History] Atorvastatin Calcium [Lipitor] 80 mg PO HS 07/04/17 [History] Calcium Carb, Citrate/Vit D3 [Calcium + D3 ER Tablet] 1 tab PO BID 07/04/17 [ History] levoFLOXacin [Levaquin] 500 mg PO DAILY #5 tablet 07/05/17 [Rx] Allergies/Adverse Reactions: 3 Allergy/AdvReac Type Severity Reaction Status Date / Time aspirin [ASA] AdvReac Itching Verified 07/03/17 10:59 Penicillins [PCN] AdvReac Itching Verified 07/03/17 10:59 Certification: Further, I certify that my clinical findings support that this patient is homebound (i.e. absences from home require considerable and taxing effort and are for medical reasons or muslim services or infrequently or short duration when for other reasons) because: Homebound Reason: Patient requires assistance of a person or device to safely leave home Attestation: My signature below is to certify that this patient is under my care and that I, or nurse practitioner, or a physician's virtual assistant for advertisers working with me, has a face-to -face encounter with this patient.
--- NOTE | 2017-07-05 13:13 | Electrocardiograph Report ---
[place] [id number] Test Date: 2017-07-04 Pat Name: Leland Shepard Department: 112 Room: 2A11 Gender: M Vp Integration: JOESPH : [id number] Requested By: Magdiel Whatley Order Number: [id number] Reading MD: Herberth Linton Measurements Intervals [place] Rate: 65 P: ID: 0 QRS: -51 QRSD: 151 T: 92 QT: 402 QTc: 414 Interpretive Statements ELECTRONIC VENTRICULAR PACEMAKER ABNORMAL RHYTHM ECG Electronically Signed On 07-05-2017 13:12:19 EST by Herberth Linton
== END 2017-07-05 12:40 | disposition home or self-care (01) ==
LOC: 2ANU 10:53 → EMEROO 10:53 → 2ANU 15:32
PROVIDERS: ADMIT Hospitalist; ATTEND Internal Medicine Cardiovascular Disease